=== PATIENT | male | born 1965 | race Caucasian/White ===

== ENCOUNTER 2016-12-02 12:03 | Emergency (ER) | payer BC ==
[2016-12-02] MEDS ORDERED: CLINDAMYCIN 150 MG CAP PO ONE (12:23)
--- NOTE | 2016-12-02 12:28 | Emergency Department Record ---
History of Present Illness - General Chief complaint: Rash Stated complaint: SORES/UPPER LEG Time Seen by Provider: 12/02/16 12:18 Source: Patient Mode of Arrival: Ambulatory Limitations: No limitations - History of Present Illness Initial comments: 51 yo male presents with tow tender sore areas that started on "Saturday or Saturday". One is located along the right inguinal area. He did try to open the area up with a needle at home. No drainage. The other area is in the left posterior lateral gluteal fold. No fevers or chills. About 1 month ago he had similar lesions that were MRSA positive and Clindamycin sensitive. MD complaint: Abscess/boil Onset/Timin -: Days(s) Location: LLE, RLE Severity scale (1-10): 1 Consistency: Constant Improves with: None Worsens with: Palpation Associated symptoms: Denies other symptoms Treatments Prior to Arrival: None - Related Data Previous Rx's Medication Instructions Recorded Clindamycin HCl [Cleocin HCl] 300 mg PO Q6H #40 capsule 12/02/16 Allergies Allergy/AdvReac Type Severity Reaction Status Date / Time No Known Drug Allergies Allergy Unverified 09/12/16 15:32 Travel Screening - Travel/Exposure Within Last 30 Days Have you traveled within the last 30 days?: No Review of Systems Constitutional: Denies: Chills, Fever, Weakness Eyes: Denies: Eye discharge ENT: Denies: Congestion, Throat pain Respiratory: Denies: Cough, Dyspnea, Hemoptysis, Stridor, Wheezes Cardiovascular: Denies: Chest pain, Syncope Endocrine: Denies: Fatigue, Polydipsia, Polyuria Gastrointestinal: Denies: Abdominal pain, Diarrhea, Nausea, Vomiting Genitourinary: Denies: Dysuria, Hematuria Musculoskeletal: Denies: Arthralgia, Back pain, Joint swelling, Myalgia, Neck pain Skin: Reports: As per HPI, Change in color, Lesions. Denies: Bruising Neurological: Denies: Headache Psychiatric: Denies: Anxiety Hematological/Lymphatic: Denies: Blood Clots, Easy bleeding, Easy bruising, Swollen glands Past Medical History - SOCIAL HISTORY Smoking Status: Current every day smoker - RESPIRATORY Hx Respiratory Disorders: No - CARDIOVASCULAR Hx Cardio Disorders: Yes Hx Hypertension: Yes - NEURO Hx Neuro Disorders: No - GI Hx GI Disorders: No - Hx Genitourinary Disorders: No - ENDOCRINE Hx Endocrine Disorders: No - MUSCULOSKELETAL Hx Musculoskeletal Disorders: No - PSYCH Hx Psych Problems: No - HEMATOLOGY/ONCOLOGY Hx Hematology/Oncology Disorders: No Family Medical History Any Significant Family History?: No Physical Exam - General General Appearance: Alert, Oriented x3, Cooperative, No acute distress Limitations: No limitations - Head Head exam: Normal inspection - Eye Eye exam: Normal appearance - ENT ENT exam: Normal exam Ear exam: Normal external inspection Nasal Exam: Normal inspection Mouth exam: Normal external inspection - Neck Neck exam: Normal inspection - Respiratory Respiratory exam: Normal lung sounds bilaterally. negative: Respiratory distress - Cardiovascular Cardiovascular Exam: Regular rate, Normal rhythm, Normal heart sounds - GI/Abdominal GI/Abdominal exam: Soft. negative: Tenderness - exam: Normal inspection, Other (no scrotal involvememt). negative: Scrotal swelling, Urethral discharge - Extremities Extremities exam: negative: Normal inspection Image of Full Body: 1 - 1.5cm tender, erythematous firm area with a central scab, no streaking, no cellulitis 2 - 2cm flat, non fluctuance area of erythema, soft, no palpable fluid collection or abscess - Back Back exam: Reports: Normal inspection - Neurological Neurological exam: Alert, Normal gait, Oriented X3, Reflexes normal - Psychiatric Psychiatric exam: Normal affect, Normal mood - Skin Skin exam: Erythema Course Vital Signs 12/02/16 12:16 Temperature 97.4 F L Pulse Rate 90 Respiratory 20 Rate Blood Pressure 185/133 Pulse Ox 95 - Reevaluation(s) Reevaluation #1: Bedside US used on both lesions Right Groin demonstrated very small , <6mm pocket the area was prepped with betadine lidocaine 1% with 1 ml used 11 blade used to open small amount of pus drained left upper posterior thigh area visualized about 1cm pocket with US betadine prep Lidocaine 1% with 1ml 15 blade used (new) pus expressed loculations broken Irrigated 1/4 inch drain placed Tolerated well 12/02/16 12:49 Disposition Disposition: Discharge Clinical Impression: Cellulitis, Abscess, Encounter for incision and drainage procedure Disposition: Home, Self-Care Condition: (1) Good Instructions: MRSA (Methicillin-Resistant Staphylococcus Aureus) (ED), Cellulitis (ED), Abscess (ED) Additional Instructions: Clean the areas twice daily Return if the area size increases, fever, pus draining or concerns Clndamycin every 6 hours Call your doctor first of the week for close follow up Return Saturday to recheck the areas involved Prescriptions: Clindamycin HCl [Cleocin HCl] 300 mg PO Q6H #40 capsule Forms: Patient Portal Access Time of Disposition: 12:53
== END 2016-12-02 13:13 | disposition home or self-care (01) ==
LOC: ER 12:03
DX: L03.116 Cellulitis of left lower limb (principal); L02.214 Cutaneous abscess of groin
CPT/HCPCS: 10060; 10061; 99284